=== PATIENT | male | born 1960 | race Caucasian/White ===

== ENCOUNTER 2017-08-09 22:00 | Emergency (ER) | payer MEDICARE ==
[2017-08-09] MEDS ORDERED: 0.9 % SODIUM CHLORIDE 1000ML 1,000 ML IV SCH (22:15)
--- NOTE | 2017-08-09 22:21 | Emergency Department Record ---
History of Present Illness - General Chief complaint: Hypergylcemia Stated complaint: BLOOD SUGAR HIGH Time Seen by Provider: 08/09/17 22:10 Source: Patient Mode of Arrival: Ambulatory Limitations: No limitations - History of Present Illness Initial comments: 57 yo male presents to ED with a CC of elevated blood sugar for the past 1 week , reports that his accucheck read 429 at home. Patient reports that his blood sugar is normally controlled with Metformin, and his blood sugar has never run high except when he was first diagnosed. Patient denies fevers, chills, or recent illness. Patient denies steroid use. MD Complaint: Generalized weakness Onset/Timin -: Week(s) Location: Generalized Severity: Moderate Consistency: Constant Improves with: None Worsens with: None Associated Symptoms: Denies other symptoms - [place] Coma Scale Eye Response: (4) Open spontaneously Motor Response: (6) Obeys commands Verbal Response: (5) Oriented [place] Total: 15 - Related Data Home Medications Medication Instructions Recorded Confirmed Last Taken Lisinopril 20 mg PO DAILY 08/09/17 08/09/17 Unknown Metformin HCl 500 mg PO BID 08/09/17 08/09/17 Unknown Trazodone HCl 50 mg PO QHS PRN 08/09/17 08/09/17 Unknown Allergies Allergy/AdvReac Type Severity Reaction Status Date / Time No Known Drug Allergies Allergy Verified 08/09/17 22:07 Travel Screening - Travel/Exposure Within Last 30 Days Have you traveled within the last 30 days?: No Review of Systems Constitutional: Denies: Chills, Fever, Malaise, Night sweats Eyes: Denies: Eye discharge, Eye pain ENT: Denies: Congestion, Ear pain Respiratory: Denies: Cough, Dyspnea Cardiovascular: Denies: Chest pain, Dyspnea on exertion Endocrine: Reports: Fatigue. Denies: Heat or cold intolerance Gastrointestinal: Denies: Constipation, Diarrhea, Vomiting Genitourinary: Reports: Frequency. Denies: Incontinence, Retention Musculoskeletal: Denies: Arthralgia, Gout, Joint swelling Skin: Denies: Bruising, Change in color Neurological: Denies: Abnormal gait, Confusion, Headache, Seizure Psychiatric: Denies: Anxiety Hematological/Lymphatic: Denies: Anemia, Blood Clots Past Medical History - SOCIAL HISTORY Smoking Status: Former smoker Alcohol Use: None Drug Use: None - RESPIRATORY Hx Respiratory Disorders: No - CARDIOVASCULAR Hx Cardio Disorders: Yes Hx Hypertension: Yes - NEURO Hx Neuro Disorders: No - GI Hx GI Disorders: No - Hx Genitourinary Disorders: No - ENDOCRINE Hx Endocrine Disorders: Yes Hx Diabetes: Yes (DM2) - MUSCULOSKELETAL Hx Musculoskeletal Disorders: No - PSYCH Hx Psych Problems: No - HEMATOLOGY/ONCOLOGY Hx Hematology/Oncology Disorders: No Family Medical History Any Significant Family History?: Yes Hx HTN: Father Physical Exam - General General Appearance: Alert, Oriented x3, Cooperative, No acute distress Limitations: No limitations - Head Head exam: Atraumatic, Normocephalic, Normal inspection Head exam detail: negative: Abrasion, Contusion, Jose's sign, General tenderness, Hematoma, Laceration - Eye Eye exam: Normal appearance. negative: Conjunctival injection, Periorbital swelling, Periorbital tenderness, Scleral icterus - ENT Ear exam: negative: Auricular hematoma, Auricular trauma Nasal Exam: negative: Active bleeding, Discharge, Dried blood, Foreign body Mouth exam: negative: Drooling, Laceration, Muffled voice, Tongue elevation - Neck Neck exam: Normal inspection. negative: Meningismus, Tenderness - Respiratory Respiratory exam: Normal lung sounds bilaterally. negative: Rales, Respiratory distress, Rhonchi, Stridor - Cardiovascular Cardiovascular Exam: Regular rate, Normal rhythm, Normal heart sounds - GI/Abdominal GI/Abdominal exam: Soft. negative: Rebound - Rectal Rectal exam: Deferred - exam: Deferred - Extremities Extremities exam: Normal inspection, Full ROM. negative: Tenderness - Back Back exam: Denies: CVA tenderness (R), CVA tenderness (L) - Neurological Neurological exam: Alert, Normal gait, Oriented X3 - Psychiatric Psychiatric exam: Normal affect, Normal mood - Skin Skin exam: Normal color. negative: Abrasion Type of lesion: negative: abrasion Course Vital Signs 08/09/17 22:02 Temperature 98.6 F Pulse Rate 88 Respiratory 18 Rate Blood Pressure 134/82 Pulse Ox 95 - Reevaluation(s) Reevaluation #1: 08/09/17 23:14 Labs reviewed, Glucose 663, Ketones positive 1:2, negative 1:4. Labs are otherwise grossly unremarkable for an acute process. Insulin IV ordered to infuse, will reassess in 45-60 minutes. Reevaluation #2: 08/10/17 00:47 Following 18 units of Insulin, patient's repeat glucose is 383. Recommended admission for glucose stabilization, patient declined as he has an appointment with his PCP in 36 hours and would like to go home. Patient was instructed to continue his Metformin as directed and to return for any worsening of his symptoms. Medical Decision Making - Lab Data Result diagrams: 08/09/17 22:40 08/09/17 22:40 Lab Results 08/09/17 Range/Units 22:08 POC Glucose (70-110) mg/dL Disposition Disposition: Discharge Clinical Impression: Hyperglycemia due to type 2 diabetes mellitus Qualifiers: Diabetes mellitus chcf insulin use: without chcf use Qualified Code(s ): E11.65 - Type 2 diabetes mellitus with hyperglycemia Disposition: Home, Self-Care Condition: (2) Stable Instructions: Hyperglycemia, Non-Diabetic (ED) Additional Instructions: Return to ED if your symptoms worsen or if you have any concerns. Continue Metformin as directed. Follow-up with Dr. Upton Wednesday morning as scheduled. Forms: Patient Portal Access Time of Disposition: 00:50 Quality - Quality Measures Quality Measures: N/A - Blood Pressure Screening Does Patient Have Any of the Following: No Blood Pressure Classification: Pre-Hypertensive BP Reading Systolic Measurement: 129 Diastolic Measurement: 82 Screening for High Blood Pressure: < Pre-Hypertensive BP, F/U Documented > [ G8950] Pre-Hypertensive Follow-up Interventions: Referral to alternative/primary care provider.
[2017-08-09 22:48] LABS: BASO % 0.3 % (0-6); EOS % 2.1 % (0-6); GRAN % 64.7 % (47-80); HEMATOCRIT 43.7 % (42.0-52.0); HEMOGLOBIN 15.7 gm/dl (14.0-18.0); LYMPH % 24.5 % (16-45); MEAN CELL VOLUME 91.6 fl (81-97); MEAN CORPUSCULAR HEMOGLOBIN 32.9 pg (27-33); MEAN CORPUSCULAR HGB CONC 35.9 g/dl (32-36); MEAN PLATELET VOLUME 9.3 fl (7.4-10.4); MONO % 8.4 % (0-9); PLATELET COUNT 215 K/uL (130-400); RED BLOOD COUNT 4.77 M/uL (4.40-5.70); RED CELL DISTRIBUTION WIDTH 12.5 % (11.5-14.5); WHITE BLOOD COUNT W/O DIFF 7.6 K/uL (4.2-12.2)
[2017-08-09 23:01] LABS: ACETONE,SERUM POSITIVE (NEGATIVE)
[2017-08-09 23:05] LABS: ALB/GLOB RATIO 1.7 (1.1-1.8); ALBUMIN 4.4 g/dL (4.0-5.0); ALKALINE PHOSPHATASE 77 U/L (40-129); ALT/SGPT 42 U/L (<41); AST/SGOT 25 U/L (10.0-50.0); CREATININE 0.9 mg/dL (0.7-1.2); EST GLOMERULAR FILTRATION RATE > 60 mL/min
[2017-08-09 23:07] LABS: GLUCOSE,RANDOM 663 mg/dL (74-109)
[2017-08-09] MEDS ORDERED: HUMULIN R 100 UNIT/ML VIAL IV ONE ×2 (23:13→23:57)
[2017-08-09] MEDS ORDERED: 0.9 % SODIUM CHLORIDE 1000ML 500 ML IV SCH (23:15)
[2017-08-11 13:30] LABS: BLOOD UREA NITROGEN 37.3 mg/dL (6-20)
== END 2017-08-10 01:01 | disposition home or self-care (01) ==
LOC: ER 22:00
DX: E11.65 Type 2 diabetes mellitus with hyperglycemia (principal); Z79.84 Long term (current) use of oral hypoglycemic drugs
CPT/HCPCS: 36416; 80053; 82009; 82800; 82948; 85025; 96374; 96376; 99284; J7030

== ENCOUNTER 2017-08-16 17:04 | Emergency (ER) | payer MEDICARE ==
--- NOTE | 2017-08-16 17:27 | Emergency Department Record ---
History of Present Illness - General Chief complaint: Hypergylcemia Stated complaint: HIGH BLOOD SUGER,UPSET STOMACH Time Seen by Provider: 08/16/17 17:20 Source: Patient Mode of Arrival: Ambulatory Limitations: No limitations - History of Present Illness Initial comments: The patient is here due to his blood sugar running high for a week. He denies any recent illness, injuries, fever, chills, or rashes. He was in the ER a week ago for the same thing and had a BS of over 600 that was improved prior to discharge. The patient then did see his PCP and had his Metformin increased and was started on Januvia. He did have some nausea today but that is now gone. Due to his BS running over 300 most of the week he decided to come back to the ER. There has been no reported chest pain, SOB, or back pain. MD Complaint: Generalized weakness Onset/Timin -: Days(s) Improves with: None Worsens with: None Associated Symptoms: Denies other symptoms - [place] Coma Scale Eye Response: (4) Open spontaneously Motor Response: (6) Obeys commands Verbal Response: (5) Oriented [place] Total: 15 - Related Data Home Medications Medication Instructions Recorded Confirmed Last Taken Sitagliptin Phosphate [Januvia] 100 mg PO DAILY 08/16/17 08/16/17 Unknown Allergies Allergy/AdvReac Type Severity Reaction Status Date / Time No Known Drug Allergies Allergy Verified 08/09/17 22:07 Travel Screening - Travel/Exposure Within Last 30 Days Have you traveled within the last 30 days?: No Review of Systems Constitutional: Denies: Chills, Fever Eyes: Denies: Eye discharge ENT: Denies: Congestion Past Medical History - SOCIAL HISTORY Smoking Status: Former smoker - RESPIRATORY Hx Respiratory Disorders: No - CARDIOVASCULAR Hx Cardio Disorders: Yes Hx Hypertension: Yes - NEURO Hx Neuro Disorders: No - GI Hx GI Disorders: No - Hx Genitourinary Disorders: No - ENDOCRINE Hx Endocrine Disorders: Yes Hx Diabetes: Yes (DM2) - MUSCULOSKELETAL Hx Musculoskeletal Disorders: No - PSYCH Hx Psych Problems: No - HEMATOLOGY/ONCOLOGY Hx Hematology/Oncology Disorders: No Family Medical History Any Significant Family History?: Yes Hx HTN: Father Physical Exam - General General Appearance: Alert, Oriented x3, Cooperative, No acute distress - Head Head exam: Atraumatic, Normocephalic, Normal inspection - Eye Eye exam: Normal appearance, PERRL - ENT Throat exam: Normal inspection. negative: Tonsillar erythema, Tonsillar exudate - Neck Neck exam: Normal inspection, Full ROM. negative: Tenderness - Respiratory Respiratory exam: Normal lung sounds bilaterally. negative: Respiratory distress - Cardiovascular Cardiovascular Exam: Regular rate, Normal rhythm, Normal heart sounds - GI/Abdominal GI/Abdominal exam: Soft, Normal bowel sounds. negative: Tenderness - Extremities Extremities exam: Normal inspection, Full ROM, Normal capillary refill. negative: Tenderness - Neurological Neurological exam: Alert, Normal gait. negative: Abnormal gait, Motor sensory deficit Course Vital Signs 08/16/17 17:06 Temperature 97.7 F Pulse Rate 90 Respiratory 20 Rate Blood Pressure 144/92 Pulse Ox 95 - Reevaluation(s) Reevaluation #1: The patient is doing very well at this time. He feels very well and denies any pain, discomfort or nausea. His repeat bedside accucheck is 380 so it is improving. I did offer to keep the patient in the hospital to monitor his sugars and possibly switch him over to insulin but he is declining due to having an appointment with his PCP the day after tomorrow. He is to continue to monitor his blood sugars 2 times a day and bring the log to his PCP's office. He also is to return to the ER if his blood sugar goes > 500. 08/16/17 18:51 08/16/17 18:57 Medical Decision Making - Lab Data Result diagrams: 08/16/17 17:25 08/16/17 17:25 Lab Results 08/16/17 Range/Units 17:11 POC Glucose 429 H (70-110) mg/dL Disposition Disposition: Discharge Clinical Impression: Hyperglycemia due to type 2 diabetes mellitus Qualifiers: Diabetes mellitus detention insulin use: without detention use Qualified Code(s ): E11.65 - Type 2 diabetes mellitus with hyperglycemia Disposition: Home, Self-Care Condition: (1) Good Instructions: Diabetic Hyperglycemia (ED) Additional Instructions: Please continue to not eat any sugars and decrease your carbohydrate intake. Please drink plenty of water. Monitor your sugars daily and keep a log. Keep the appointment with your PCP for Wed in 2 days. Return to the ER for any pain, fever, vomiting, nausea, or dizziness. Forms: Patient Portal Access Time of Disposition: 18:54 Quality - Quality Measures Quality Measures: N/A - Blood Pressure Screening View Details: Yes Does Patient Have Any of the Following: No Blood Pressure Classification: Hypertensive Reading Systolic Measurement: 144 Diastolic Measurement: 92 Screening for High Blood Pressure: < Pre-Hypertensive BP, F/U Documented > [ G8950] Pre-Hypertensive Follow-up Interventions: Referral to alternative/primary care provider.
[2017-08-16] MEDS: 0.9 % SODIUM CHLORIDE 1,000 ML BAG IV ONE ×2 (17:33→18:22)
[2017-08-16 17:45] LABS: BASO % 0.3 % (0-6); EOS % 1.3 % (0-6); GRAN % 68.1 % (47-80); HEMATOCRIT 43.1 % (42.0-52.0); HEMOGLOBIN 15.7 gm/dl (14.0-18.0); LYMPH % 21.2 % (16-45); MEAN CELL VOLUME 91.1 fl (81-97); MEAN CORPUSCULAR HEMOGLOBIN 33.2 pg (27-33); MEAN CORPUSCULAR HGB CONC 36.4 g/dl (32-36); MEAN PLATELET VOLUME 9.5 fl (7.4-10.4); MONO % 9.1 % (0-9); PLATELET COUNT 223 K/uL (130-400); RED BLOOD COUNT 4.73 M/uL (4.40-5.70); RED CELL DISTRIBUTION WIDTH 12.5 % (11.5-14.5)
[2017-08-16 17:46] LABS: ACETONE,SERUM NEGATIVE (NEGATIVE)
[2017-08-16 17:59] LABS: ALBUMIN 4.1 g/dL (4.0-5.0); ALKALINE PHOSPHATASE 70 U/L (40-129); ALT/SGPT 33 U/L (<41); AST/SGOT 16 U/L (10.0-50.0); BLOOD UREA NITROGEN 37.8 mg/dL (12.6-42.6); CREATININE 0.8 mg/dL (0.7-1.2); EST GLOMERULAR FILTRATION RATE > 60 mL/min; TOTAL PROTEIN 6.7 g/dL (6.6-8.7)
[2017-08-16 18:00] LABS: URINE APPEARANCE CLEAR; URINE BILIRUBIN NEGATIVE (NEGATIVE); URINE BLOOD NEGATIVE (NEGATIVE); URINE COLOR YELLOW; URINE KETONE 15 mg/dL (NEGATIVE); URINE LEUKOCYTE ESTERASE NEGATIVE (NEGATIVE); URINE NITRITE NEGATIVE (NEGATIVE); URINE PROTEIN NEGATIVE (NEGATIVE); URINE UROBILINOGEN 0.2 E.U./dL (0.20 - 1.00)
[2017-08-16 18:02] LABS: URINE GLUCOSE (UA) >=1000 mg/dL (NEGATIVE)
[2017-08-16 18:10] LABS: BILIRUBIN,DIRECT < 0.2 mg/dL (0-0.3); GLUCOSE,RANDOM 451 mg/dL (74-109)
[2017-08-16] MEDS: HUMULIN R 100 UNIT/ML VIAL IV ONE (18:21)
== END 2017-08-16 19:19 | disposition home or self-care (01) ==
LOC: ER 17:04
DX: E11.65 Type 2 diabetes mellitus with hyperglycemia (principal); R11.0 Nausea; I10 Essential (primary) hypertension; R53.1 Weakness; Z79.84 Long term (current) use of oral hypoglycemic drugs; Z87.891 Personal history of nicotine dependence
CPT/HCPCS: 36416; 80048; 80076; 81003; 82009; 82948; 85025; 96361; 96374; 99284; J7030

== ENCOUNTER 2019-07-14 11:16 | Emergency (ER) | payer MEDICARE ==
[2019-07-14] MEDS ORDERED: DIPHENHYDRAMINE HCL 50 MG/ML VIAL IVP ONE (11:22)
[2019-07-14] MEDS ORDERED: METHYLPREDNISOLONE PF 125MG/VIAL IVP ONE (11:23)
[2019-07-14] MEDS ORDERED: RANITIDINE HCL 50 MG in 0.9 % SODIUM CHLORIDE 100ML 100 ML IVPB ONE (11:23)
--- NOTE | 2019-07-14 11:25 | Emergency Department Record ---
History of Present Illness - General Chief complaint: Allergic Reaction Stated complaint: ALERGIC REACTION Time Seen by Provider: 07/14/19 11:19 Source: Patient, Family Mode of Arrival: Ambulatory Limitations: No limitations - History of Present Illness Initial Comments: 59 yo male presents with and itchy rash on the face (eye lids) and left forearm. The onset was yesterday evening. No cough, shortness of breath, swelling of the lips, tongue, or throat. He was pulling weeds the yesterday otherwise he is unaware of any exposures. He has been in his usual health recently without illness or injury. PCP is in [place]. Complaint: Allergic reaction, Facial swelling -: Days(s) (1) Exposure: Unknown Symptoms: Itching, Rash Severity: Mild Treatment Prior to Arrival: None Previous Allergy History: None - Related Data Home Medications Medication Instructions Recorded Confirmed Last Taken Insulin Glargine,Hum.rec.anlog 1 unit SQ ASDIR 07/14/19 07/14/19 Unknown [Lantus] Previous Rx's Medication Instructions Recorded Cetirizine HCl [Zyrtec] 10 mg PO DAILY #14 cap 07/14/19 Prednisone [Prednisone 20Mg] 20 mg PO BID #10 tab 07/14/19 Allergies Allergy/AdvReac Type Severity Reaction Status Date / Time No Known Drug Allergies Allergy Verified 08/09/17 22:07 Review of Systems Constitutional: Denies: Chills, Fever, Malaise, Weakness Eyes: Reports: Other (lid swelling). Denies: Eye discharge, Eye pain, Photophobia, Vision change ENT: Denies: Congestion, Epistaxis, Throat pain Respiratory: Denies: Cough, Dyspnea, Stridor, Wheezes Cardiovascular: Denies: Chest pain, Syncope Endocrine: Denies: Fatigue Gastrointestinal: Denies: Abdominal pain, Diarrhea, Nausea, Vomiting Genitourinary: Denies: Dysuria, Frequency, Hematuria Musculoskeletal: Denies: Arthralgia, Back pain, Myalgia Skin: Denies: Bruising, Change in color, Rash Neurological: Denies: Headache Psychiatric: Denies: Anxiety Hematological/Lymphatic: Denies: Easy bleeding, Easy bruising Past Medical History - SOCIAL HISTORY Smoking Status: Former smoker - RESPIRATORY Hx Respiratory Disorders: No - CARDIOVASCULAR Hx Cardio Disorders: Yes Hx Hypertension: Yes - NEURO Hx Neuro Disorders: No - GI Hx GI Disorders: No - Hx Genitourinary Disorders: No - ENDOCRINE Hx Endocrine Disorders: Yes Hx Diabetes: Yes (DM2) - MUSCULOSKELETAL Hx Musculoskeletal Disorders: No - PSYCH Hx Psych Problems: No - HEMATOLOGY/ONCOLOGY Hx Hematology/Oncology Disorders: No Family Medical History Hx HTN: Father Physical Exam - General General Appearance: Alert, Oriented x3, Cooperative, No acute distress Limitations: No limitations - Head Head exam: Atraumatic. negative: Normal inspection Head exam detail: Other (swelling around the bilateral eyelids) Image of Face/Head: 1 - lid edema, soft, not warm. Opens eyes with minimal difficulty - Eye Eye exam: PERRL, EOMI, Periorbital swelling. negative: Normal appearance, Conjunctival injection, Periorbital tenderness, Scleral icterus - ENT ENT exam: Mucous membranes moist, Normal external ear exam, Normal orophraynx. negative: Mucous membranes dry Ear exam: Normal external inspection Nasal Exam: Normal inspection Mouth exam: Normal external inspection, Tongue normal. negative: Muffled voice, Tongue elevation Teeth exam: Normal inspection Throat exam: Normal inspection. negative: Tonsillar erythema, Tonsillomegaly, Tonsillar exudate, R peritonsillar mass, L peritonsillar mass - Neck Neck exam: Normal inspection. negative: Lymphadenopathy, Tenderness - Respiratory Respiratory exam: Normal lung sounds bilaterally. negative: Respiratory distress, Rhonchi, Stridor, Wheezes - Cardiovascular Cardiovascular Exam: Regular rate, Normal rhythm, Normal heart sounds - GI/Abdominal GI/Abdominal exam: Soft. negative: Tenderness - Rectal Rectal exam: Deferred - exam: Deferred - Extremities Extremities exam: Normal capillary refill. negative: Normal inspection (rash left forearm), Calf tenderness, Pedal edema, Tenderness - Back Back exam: Reports: Normal inspection - Neurological Neurological exam: Alert, Oriented X3 - Psychiatric Psychiatric exam: Normal affect, Normal mood. negative: Agitated, Anxious - Skin Skin exam: Erythema, Urticaria Course - Reevaluation(s) Reevaluation #1: 07/14/19 11:52 No signs of systemic reaction The patient's airway, tongue, lips, tongue normal on examination We discussed signs and symptoms for monitoring at home, monitoring glucose closely on steroids, returning if any concerns with reaction or glucose. 07/14/19 12:03 The patient has Ranitidine at home. Rx cancelled. His is improved prior to DC with decreased symptoms and swelling of the lids Disposition Disposition: Discharge Clinical Impression: Rash Contact dermatitis Qualifiers: Contact dermatitis type: allergic Contact dermatitis trigger: non-food plants Qualified Code(s): L23.7 - Allergic contact dermatitis due to plants, except food Disposition: Home, Self-Care Condition: (1) Good Instructions: Urticaria (ED) Additional Instructions: Call your doctor for the next available follow up appointment if any symptoms continue Return if you have any worsening symptoms, cough, shortness of breath, lip, tongue, or throat swelling Take the prescriptions provided as directed Monitor your blood sugar closely the next week as it may temporarily be higher while on the steroids You may ice the area every 4-6 hours to minimize the swelling Expect worse swelling in the morning until you get up and move around. Prescriptions: Prednisone [Prednisone 20Mg] 20 mg PO BID #10 tab Cetirizine HCl [Zyrtec] 10 mg PO DAILY #14 cap Forms: Patient Portal Access Time of Disposition: 12:00 Quality - Quality Measures Quality Measures: N/A - Blood Pressure Screening Does Patient Have Any of the Following: Active Dx of HTN Blood Pressure Classification: Pre-Hypertensive BP Reading Systolic Measurement: 129 Diastolic Measurement: 85 Screening for High Blood Pressure: Patient Exclusion, Hx of HTN [G9744]
== END 2019-07-14 12:23 | disposition home or self-care (01) ==
LOC: ER 11:16
DX: L23.7 Allergic contact dermatitis due to plants, except food (principal); H02.846 Edema of left eye, unspecified eyelid; I10 Essential (primary) hypertension; E11.9 Type 2 diabetes mellitus without complications; Z87.891 Personal history of nicotine dependence
CPT/HCPCS: 96365; 96375; 99284; J1200; J2780; J2930